=== PATIENT | male | born 1940 | race Caucasian/White ===

== ENCOUNTER 2016-09-16 07:52 | Day surgery (SDC) | payer MEDICARE, OTHER ==
[2016-09-09 12:47] LABS: HEMATOCRIT 39.7 % (40.0-51.0); HEMOGLOBIN 13.6 g/dL (13.6-17.8)
[2016-09-09 13:13] LABS: ALBUMIN 3.8 G/DL (3.5-5.0); ALKALINE PHOSPHATASE 47 U/L (45-117); BUN (BLOOD UREA NITROGEN) 13 MG/DL (6-23); CALCIUM, SERUM 8.6 MG/DL (8.5-10.4); CHLORIDE, SERUM 104 MMOL/L (96-112); CO2 (CARBON DIOXIDE) 28 MMOL/L (24-34); CREATININE 0.97 MG/DL (0.70-1.30); GFR AFRICAN AMERICAN 86 ML/MIN (>=60); GFR NON AFRICAN AMERICAN 74 ML/MIN (>=60); GLOBULIN 3.7 G/DL (2.5-4.1); GLUCOSE, SERUM 108 MG/DL (60-99); POTASSIUM, SERUM 3.9 MMOL/L (3.5-5.3); SGOT(AST) 15 U/L (5-40); SGPT(ALT) 17 U/L (5-65); SODIUM, SERUM 140 MMOL/L (135-148); TOTAL BILIRUBIN 0.6 MG/DL (0-1.2); TOTAL PROTEIN 7.5 G/DL (6.0-8.5)
--- NOTE | ~2016-09-16 | OP ---
Record Of Operation [facility] [address] [place]. [address] NAME: ROBIN PANTOJA : 36 STATUS : [facility]#: [id number] AGE: 76 ADM/REG DATE : 09/16/16 MR#: [id number] REPORT SERV DATE: 09/26/16 DICTATED BY: GUSTABO MARTE DATE: 09/26/16 REPORT STATUS : Draft TRANSCRIBED BY: MODL DATE: 09/26/16 DATE OF PROCEDURE: 09/16/2016 PREOPERATIVE DIAGNOSIS: Right inguinal hernia. POSTOPERATIVE DIAGNOSIS: Right inguinal hernia with recurrent left inguinal hernia. PROCEDURE: Laparoscopic reduction and mesh patch repair of bilateral inguinal hernia. SURGEON: Gustabo Marte M.D. DESCRIPTION OF OPERATIVE PROCEDURE: The patient was brought to the operating suite, placed in the supine position, underwent satisfactory general endotracheal anesthesia without incident. The skin of the abdomen was scrubbed, prepped, and draped in the usual sterile fashion. Marcaine 0.5% with epinephrine was utilized as supplemental local anesthesia. Initially, an infraumbilical incision was performed dissecting through the skin and subcutaneous tissue. Inferolateral retraction on the left exposed the medial aspect of the left anterior rectus sheath which was incised longitudinally. This exposed the medial aspect of the left rectus muscle which was retracted laterally exposing the left posterior rectus sheath. A preperitoneal dissection balloon was inserted posterior to the left rectus sheath to the level of the pubic tubercle. It was then insufflated under direct visualization, creating a preperitoneal dissection plane. Following adequate dissection, the balloon was removed and replaced with a structural balloon and CO2 was insufflated for pressures of 15 mmHg throughout the case. Two additional 5 mm trocars were placed in the infraumbilical midline under direct visualization. Evaluation of the preperitoneal space in the inguinal canals revealed a direct right inguinal hernia and then a recurrent left inguinal hernia also which was direct. Hesselbach's triangle, inferior epigastric vessels, and the cord structures were skeletonized. Two separately placed pieces of Bard 3D max mesh size large oriented left and right were utilized. They were both dipped in local anesthesia, rolled up and placed in the preperitoneal space and unrolled over the inguinal canals bilaterally. They were used to cover Hesselbach's triangle of the inferior epigastric vessels and the internal ring. Multiple firings of the 5 mm helical tacker were utilized to plicate the mesh in position predominantly on the pubic tubercle and the rectus musculature. Hemostasis was assured and the preperitoneal space was allowed to collapse sandwiching the mesh. CO2 was milked from the preperitoneal space. All trocars were removed. No muscular bleeding was noted. The left anterior rectus sheath was closed with [id number] suture of 0 Vicryl, subcutaneous tissue closed at all sites with interrupted 4-0 Vicryl, running subcuticular stitch with 4-0 Vicryl for the skin. Dermabond skin adhesive placed. Record Of Operation [facility] [address] [facility] [place]. [address] NAME: ROBIN PANTOJA : 36 STATUS : [facility]#: [id number] AGE: 76 ADM/REG DATE : 09/16/16 MR#: [id number] REPORT SERV DATE: 09/26/16 DICTATED BY: GUSTABO MARTE DATE: 09/26/16 REPORT STATUS : Draft TRANSCRIBED BY: HARMONY DATE: 09/26/16 The patient tolerated the procedure well and was returned to PACU in stable condition. At the termination of the procedure, sponge, needle, lap, and instrument counts were correct x3. ESTIMATED BLOOD LOSS: Less than 10 mL. TREMAINE/HARMONY Gustabo Marte M.D. / [id number] CC: Beto Stephens M.D.
[~2016-09-16 07:52] MED LIST: ASAB PO; CLARIT10 PO; COLAZAL750 MG PO; FLOMAX4 PO; PLAVIX PO; PRESERVISION A1 EAC1 PO
== END 2016-09-16 15:19 | disposition home or self-care (01) ==
LOC: SDC 07:52
PROVIDERS: Specialist
PROC: 0YUA4JZ Supplement Bilateral Inguinal Region with Synthetic Substitute, Percutaneous Endoscopic Approach (ICD-10-PCS; principal; 2016-09-16 09:00)
DX: K40.90 Unilateral inguinal hernia, without obstruction or gangrene, not specified as recurrent (principal); I48.91 Unspecified atrial fibrillation; K50.90 Crohn's disease, unspecified, without complications; E78.5 Hyperlipidemia, unspecified; I25.2 Old myocardial infarction; I25.10 Atherosclerotic heart disease of native coronary artery without angina pectoris; Z87.891 Personal history of nicotine dependence; Z79.82 Long term (current) use of aspirin; Z79.02 Long term (current) use of antithrombotics/antiplatelets; Z79.899 Other long term (current) drug therapy; Z90.49 Acquired absence of other specified parts of digestive tract; Z98.890 Other specified postprocedural states
CPT/HCPCS: 80053; 85014; 85018; 93005; C1726; C1727; C1781; J0690; J1170; J1885; J2250; J2405; J2710; J3010